=== PATIENT | female | born 1965 ===

== ENCOUNTER 2024-08-23 08:43 | Outpatient (CLI) | payer OTHER, SELFPAY | END 2024-08-23 08:44 | disposition home or self-care (01) | LOC: NFLDREF 08-24 10:10 | PROVIDERS: Visit Provider Emergency Medicine | DX: Z00.00 Encounter for general adult medical examination without abnormal findings (principal); R10.13 Epigastric pain; R53.83 Other fatigue | CPT/HCPCS: 80048; 80061; 80076; 83690; 84443 ==

== ENCOUNTER 2024-08-29 16:37 | Outpatient (CLI) | payer OTHER, SELFPAY | END 2024-08-29 16:38 | disposition home or self-care (01) | PROVIDERS: Visit Provider Emergency Medicine | DX: R10.13 Epigastric pain (principal); G89.29 Other chronic pain; Z13.810 Encounter for screening for upper gastrointestinal disorder | CPT/HCPCS: 82784; 86140; 86231; 86258; 86364 ==

== ENCOUNTER 2024-09-06 07:01 | Outpatient (CLI) | payer OTHER, SELFPAY ==
--- OUTSIDE RECORDS SUMMARY | 2015-08-26 06:28 | XMS_ITS | Continuity of Care Document ---
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 Do not break, chew and/or open. 145 MCG - Active Multivitamin unknown Oral take 1 Tablet by Oral route every day - Active ADVIL (unknown strength) take 2 tablet by oral route every 4 - 6 hours as needed with food Not Available - Active Joint Support 375 mg-300 mg-50 mg-2 mg Cap take by Oral route every day Not Available - Active Procedures Procedure Date Offic/outpt E&m New Mod-hi Routine Serum Collection Colonoscopy Flex; Dx (nov Pro) 12 Offic/outpt E&m New Mod Sever 2 [id number] Advance Directives Directive Yes / No Effective Date File Name No Information Encounters Encounter Description Practice Location Reason(s) For Visit Diagnoses Date Provider Providers Copied on Encounter [facility], [address] [address], [place], [id number], [place] tel:[phone] [facility] No Information 6 Paloma Vogel. [address] [facility], [facility] [address], [place], [place], [id number], [place]. [phone] Offic/outpt E&m [facility], [address] [address], [place], [place], [id number], [place] tel:[phone] [facility] GI Symptoms or Concerns (chief complaint) Constipation, unspecified constipation typeDietary counseling and surveillance 6 Paloma Vogel. [address] [facility], [facility] [address], [place], [place], [id number], [place]. [phone] Referring Provider: Referral Self, USE FOR SELF REFERRALS. [facility], [address] [address], [place], [place], [id number], [place] tel:[phone] [facility] Change In Bowel HabitsConstip ation UnspecifiedCh jones In Bowel Habits 2 No Information Referring Provider: Jamila Heart MD, [address], [place], [address]. tel:[phone] Offic/outpt E&m [facility], [address] [address], [place], [place], [id number], [place] tel:[phone] [facility] Constipation (chief complaint)GENESIS D (chief complaint)Gas (chief complaint)Blo ating (chief complaint) Constipation Unspecified 2 No Information Referring Provider: Jamila Heart MD, [address], [place], [address]. tel:[phone] Family History Family Member Type Diagnosis Age At Onset Mother Problem (finding) peptic ulceration Daughter Problem (finding) Alive and well Mother Problem (finding) ulcerative colitis Father Problem (finding) gallbladder disease Mother Problem (finding) Colon polyps Brother Problem (finding) Alive and well Son Problem (finding) Alive and well Mother Problem (finding) alcoholism Payers Payer name Insurance type Covered republican ID Authoriza tion(s) No Information Social History Type Description Quantity Date Captured Comments Alcohol Use Details Unknown Caffeine Use Details Unknown Tobacco Use Status No Information Smoking Status No Information Sex Female Chief Complaint And Reason For Visit No Information Reason For Referral Reason For Referral No Information Plan Of Treatment Date Type Action Status Goal Lifestyle education lamont murguia diet completed Referral Ordered: Colonoscopy Appointment date/timeframe: 08/24/2016 ordered History Of Present Illness Encounter Date Complaint History Of Prese nt Illness GI Symptoms or Concerns Ms. Thanh vásquez is here because of constipation. She came to clinic four years ago with somewhat similar, but not a severe symptoms. She believes with time things are getting worse because of her going through menopause. If she took nothing to help bowel movements, she would go about every four days. The first stool that day would be firm small balls. She would then go a few other times. Each stool become softer. By the end of the day, she would feel much better. She will probably feel fine the next day. She would then not have the stool for several days and feel progressively worse. She gets discomfort and feels that her lower abdomen is swollen. She also feels intestinal contents moving around in her abdomen. The best diet for her are a special recipe of meatballs and peeled cucumber. She can have a normal stool if she follows this very restrictive diet. She notes that dairy products, fiber, and raw vegetables make her constipation much worse. She currently is taking magnesium Functional Status Date Functional Assessmen t No Information Instructions Date Instruction Additional Infor kayli Colonoscopy Related to Const ipation, unspecified Lifestyle education regarding di et Related to Dietary counseling and surveillance Assessments Type Assessment Date No Information Patient Care Teams Name Effective Dates (start - stop) Status Members No Information
--- NOTE | 2024-09-06 07:15 | CRLHL7_ITS ---
For Patients: As a result of the Century Cures Act, medical imaging exams and procedure reports are released immediately into your electronic medical record. You may view this report before your referring provider. If you have questions, please contact your health care provider. INDICATION: Epigastric pain TECHNIQUE: Ultrasound abdomen limited. Sonographic images of the right upper quadrant were obtained using altamirano-scale and color Doppler images. COMPARISON: None FINDINGS: Liver: Normal in size and echotexture. No masses. No intrahepatic biliary dilatation. Gallbladder: No stones or sludge. Normal wall thickness. No pericholecystic fluid. Common bile duct: 4 mm. Pancreas: Unremarkable with the tail of the pancreas obscured by bowel gas. Right kidney: Normal in size. Normal echotexture and cortex. No masses, stones, or hydronephrosis. Vasculature: Proximal abdominal aorta and IVC are normal. IMPRESSION: Unremarkable right upper quadrant ultrasound. Dictated by Porter Galeas MD @ 09/06/2024 7:40:10 AM (Electronically Signed)
--- OUTSIDE RECORDS SUMMARY | 2024-09-07 00:55 | XMS_ITS | Clinical Summary ---
Author Organization [facility] Address [address] [place] [address] Care Team Providers Care Pesticide Use Medical Coordinator Name Role Phone Specialists, Radiological Engineer Unavailable Unavailable Allergies Active Allergy Reactions Criticality Noted Date Comments Codeine Nausea And Vomiting 03/30/2021 Latex Rash 10/02/2019 Burning sensation Medications valACYclovir (VALTREX) 500 mg tablet Take 500 mg by mouth once daily. PRN 3 Active rx azithromycin (ZITHROMAX ZPAK) 250 mg tablet (ED HI MED)Indications:P rotracted bacterial bronchitis (HC) Take 500 mg (2 tablets) by mouth on Day 1 then 250 mg (1 tablet) by mouth daily on Days 2-5. 6 Tablet 3 Active albuterol HFA (PRO-AIR; VENTOLIN; PROVENTIL) 90 mcg/actuation inhalerIndication s:Chronic bronchitis, unspecified chronic bronchitis type (HC) Inhale 1-2 Puffs by mouth every 4 hours if needed for Shortness Of Breath or Wheezing (cough). 18 g 3 Active Active Problems No known active problems Immunizations Immunization Administration Dates Next Due AMB INFLUENZA, IIV4 (AGE=>6MOS) MDV (Flu Clinic Only) 12/19/2019 COVID-19 vaccine (Sanovation 30mcg/0.3mL) P F, MDV 09/09/2020,08/19/2020 HPV 9 (Gardasil 9) 07/16/2020 Hepatitis A (Adult) 10/20/2004 Hepatitis A (Peds) 11/11/2005 Hepatitis B (Adult) 03/31/2005,10/20/2004 Influenza, IIV3 (Age >=3 years) 12/13/2012 Influenza,CCIIV4 PRESERV FREE 01/12/2023 Td (Age >=7 Years) 11/11/2005 Tdap 12/14/2016 Family History Medical History Relation Name Comments No Known Problems Brother Good Health Daughter Hyperlipidemia Father triglycerides Hypertension Father Cancer Maternal Grandfather testicu lar Alzheimer's disease Maternal Grandmother Heart Disease Maternal Grandmother Alcoholism Mother Stroke Paternal Grandfather Hypertension Paternal Grandmother Good Health Son Relation Name Status Comments Brother Alive Daughter Alive Father Alive Maternal Grandfather Maternal Grandmother Mother Paternal Grandfather Paternal Grandmother Alive Son Alive Social History Tobacco Use Types Packs/Day Years Used Date Smoking Tobacco: Never Smokeless Tobacco: Never Tobacco Cessation:Counseling Given: Yes Alcohol Use Standard Drinks/Week Comments Yes 2.5 (1 standard drink = 0.6 oz p ure alcohol) PHQ-2 Answer Date Recorded PHQ-2 TOTAL SCORE 2 10/28/2020 Social Connections Answer Date Recorded Frequency of Communication with Friends and Fami ly Not on file 03/16/2021 Financial Resource Strain Answer Date R ecorded Difficulty of Paying Living Expenses Not on file 03/16/2021 Difficulty of Paying Living Expenses Not on file 03/16/2021 Comments No Sex and Gender Information Value Date Recorded Sex Assigned at Female 03/04/2020 5:51 PM [employer] Legal Sex Female 6:11 AM [employer] Gender Identity Female 03/04/2020 5:51 PM [employer] Sexual Orientation Not on file 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 Not on file Not on fi le Not on file Obstetrics History Last Filed Vital Signs Vital Sign Reading Time Taken Comments Blood Pressure 120/84 02/17/2023 8:25 AM [employer] Pulse 80 02/17/2023 8:25 AM [employer]BER Temperature 36.4 C (97.6 F) 03/30/2021 1:25 PM [employer] Respiratory Rate 16 03/30/2021 1:25 PM [employer]BER Oxygen Saturation 98% 02/17/2023 8:25 AM [employer]BER Inhaled Oxygen Concentration - - Weight 89.7 kg (197 lb 11.2 oz) 02/17/2023 8:25 AM [employer] Height 160 cm (5' 2.99) 01/25/2022 11: 19 AM [employer]BER Body Mass Index 35.03 01/25/2022 11:19 AM [employer] Plan of Treatment Health Maintenance Due Date Last Done Comments Hepatitis B series for 19+ ( 3 of 3 - 19+ 3-dose series) 05/26/2005 03/31/2005, 10/20/2004 Pneumococcal series for age 50+ (1 of 1 - PCV) 2014 Zoster (shingles) series for age 50+ (1 of 2) 2014 Fecal testing non-DNA (FIT,FOBT,iFOBT) for age 45-75 01/13/2021 01/14/2020 Mammogram for age 45-75 03/11/2021 03/11/20 20, 03/16/2010, 03/16/2010 Depression screening for age 12+ 10/28/2021 10/28/2020, 10/04/2019, 10/03/2019, Additional history exists BMI (ht and wt on same day) for age 18+ 01/25/2023 01/25/2022, 03/30/2021, 01/21/2021, Additional history exists Pap test for age 21-65 10/17/2023 9 (Verified in Care Everywhere or Patient Record), 06/01/2012 (Completed outside of [place]) COVID-19 vaccine series ( season) 2023 09/09/2020, 08/19/2020 Influenza Vaccine (Season Ended) 2024 01/12/2023, 12/19/2019, 12/13/2012 Lipids for age 45-75 10/28/2025 10/28/2020, 12/31/2019, 12/02/2012 (Completed outside of [place]) Tetanus booster 12/14/2026 12/14/2016, 11/11/2005 Tdap Completed 12/14/2016 HIV for age 15-65 Completed 10/01/2019 (Co mpleted outside of [place]) Hepatitis C screening for ag e 18-79 Completed 10/01/2019 (Completed outsid e of [place]) Procedures Procedure Name Priority Date/Time Associated Diagnosis Comments LIPID PANEL W REFLEX MEASURED LDL Routine 10/28/2020 10:00 AM CDT Screening for cholesterol level SCAN-MAMMOGRAPHY REPORT 03/11/2020 12:00 AM [employer]BER OCCULT BLOOD IFOBT STOOL Routine 01/14/2020 1:24 PM CDT Screening for colorectal cancer from Last 3 Months or Most Recently Relevant to Health Maintenance Results * (ABNORMAL) LIPID PANEL W REFLEX MEASURED LDL (10/28/2020 10:00 AM CDT) CHOLESTEROL,TOTAL 210(H) 100 - 199 mg/dL 10/28/2020 2:13 PM CDT [facility] TRIGLYCERIDES 239(H) <150 mg/dL 10/28/2020 2:13 PM CDT [facility] HDL CHOLESTEROL 61 >40 mg/dL 2:13 PM CDT [facility] NON-HDL CHOLESTEROL 149(H) <145 mg/dl 10/28/2020 2:13 PM CDT [facility] CHOL/HDL RATIO 3.44 <4.50 10/28/2020 2:13 PM CDT [facility] LDL CHOLESTEROL 101 <=130 mg/dL 10/28/2020 2:13 PM CDT [facility] VLDL CHOLESTEROL 48 mg/dL 10/29/19 2:13 PM CDT [facility] PROVIDER ORDERED STATUS FASTING 10/28/2020 2:13 PM CDT [facility] Blood BLOOD SPECIMEN / Unknown Venipuncture / Unknown 10/28/2020 10:00 AM CDT 10/28/2020 10:06 AM CDT us De[facility] Final Resul t [facility] [address] [place] [address], [place] * SCAN-MAMMOGRAPHY REPORT (03/11/2020 12:00 AM [employer]BER) Anatomical Region Laterality Modality Other us Scanner OTHER Final Result * OCCULT BLOOD IFOBT STOOL (01/14/2020 1:24 PM CDT) STOOL BLOOD ,IFOBT Negative Negative 01/21/2020 2:04 PM [employer]BER [facility] Stool STOOL SPECIMEN / Unknown Non-Blood / Unknown 01/14/2020 1:24 PM CDT 01/20/2020 1:24 PM [employer] MEMBER Yadi Cunha MD LABORATORY Final Res ult [facility] [address] [place] [address], [place] [phone] from Last 3 Months or Most Recently Relevant to Health Maintenance Care Teams Pesticide Use Medical Coordinator Relationship Specialty Start Date End Date Specialists, Radiological Engineer Gynecology Obstetrics and Gynecology 10/16/18
== END 2024-09-06 07:02 | disposition home or self-care (01) ==
LOC: US 07:03
PROVIDERS: PCP Emergency Medicine; Visit Provider Emergency Medicine
DX: R10.13 Epigastric pain (principal)
CPT/HCPCS: 76705

== ENCOUNTER 2024-12-23 13:23 | Outpatient (CLI) | payer OTHER, SELFPAY ==
--- NOTE | 2024-12-23 13:40 | CRLHL7_ITS ---
For Patients: As a result of the Century Cures Act, medical imaging exams and procedure reports are released immediately into your electronic medical record. You may view this report before your referring provider. If you have questions, please contact your health care provider. BILATERAL DIGITAL SCREENING MAMMOGRAM WITH COMPUTER-AIDED DETECTION AND TOMOSYNTHESIS CLINICAL HISTORY: Routine screening exam. COMPARISON: None. TECHNIQUE: Digital mammogram in CC and MLO projections including computer-aided detection (CAD). Tomosynthesis was used in this interpretation. BREAST COMPOSITION: There are scattered areas of fibroglandular density. FINDINGS: RIGHT Breast: Focal asymmetric density within the lateral RIGHT breast 3 cm from the nipple. LEFT Breast: No suspicious findings. IMPRESSION: RIGHT breast asymmetry/mass. RECOMMENDATIONS: Additional mammographic views of the RIGHT breast including 3D spot compression CC/MLO. RIGHT breast ultrasound may also be required. The [facility] will contact the patient. A lay language report of this examination will be provided to the patient. BI-RADS Category 0: Incomplete: Need Additional Imaging Evaluation Dictated by Gabo Holliday MD @ 12/24/2024 9:53:46 AM jj/Dictated by: Gabo Holliday MD @ 12/24/2024 9:53:00 AM (Electronically Signed)
== END 2024-12-23 13:24 | disposition home or self-care (01) ==
LOC: MAMMO 13:23
PROVIDERS: PCP Emergency Medicine; Visit Provider Emergency Medicine
DX: Z12.31 Encounter for screening mammogram for malignant neoplasm of breast (principal); N63.10 Unspecified lump in the right breast, unspecified quadrant
CPT/HCPCS: 77063; 77067

== ENCOUNTER 2024-12-27 07:31 | Outpatient (CLI) | payer OTHER, SELFPAY ==
--- NOTE | 2024-12-27 07:45 | CRLHL7_ITS ---
For Patients: As a result of the Cures Act, medical imaging exams and procedure reports are released immediately into your electronic medical record. You may view this report before your referring provider. If you have questions, please contact your health care provider. RIGHT DIAGNOSTIC MAMMOGRAM WITH COMPUTER-AIDED DETECTION AND TOMOSYNTHESIS RIGHT BREAST ULTRASOUND CLINICAL HISTORY: RIGHT breast mass/asymmetry. COMPARISON: 12/23/2024. TECHNIQUE: Digital RIGHT mammogram in two projections. Computer-aided detection and tomosynthesis were used in this interpretation. Real-time ultrasound imaging of RIGHT breast with imaging documentation. BREAST COMPOSITION: There are scattered areas of fibroglandular density. FINDINGS: 3D spot compression CC/MLO RIGHT breast mammogram images submitted. Decreased conspicuity of previously noted asymmetric density. No architectural distortion or suspicious calcifications. Targeted RIGHT breast ultrasound performed. At 3 o`clock, 3 cm from the nipple, there is normal fibroglandular tissue. No suspicious findings. IMPRESSION: No evidence of malignancy. RECOMMENDATIONS: Routine screening mammography. A lay language report of this examination will be provided to the patient. BI-RADS Category 2: Benign Dictated by Gabo Holliday MD @ 12/27/2024 9:15:06 AM /sp SP/Dictated by: Gabo Holliday MD @ 12/27/2024 9:15:00 AM (Electronically Signed)
--- NOTE | 2024-12-27 08:15 | CRLHL7_ITS ---
For Patients: As a result of the Century Cures Act, medical imaging exams and procedure reports are released immediately into your electronic medical record. You may view this report before your referring provider. If you have questions, please contact your health care provider. PLEASE SEE RIGHT BREAST DIAGNOSTIC MAMMOGRAM PERFORMED SAME DAY. CRL:sp SP/Dictated by: Gabo Holliday MD @ 12/27/2024 9:15:00 AM (Electronically Signed)
== END 2024-12-27 07:32 | disposition home or self-care (01) ==
LOC: MAMMO 07:32
PROVIDERS: PCP Emergency Medicine; Visit Provider Emergency Medicine
DX: N63.10 Unspecified lump in the right breast, unspecified quadrant (principal); R92.8 Other abnormal and inconclusive findings on diagnostic imaging of breast
CPT/HCPCS: 76642; 77065; G0279